=== PATIENT | female | born 1985 | race Caucasian/White ===

== ENCOUNTER 2017-10-27 08:34 | Emergency (ER) | payer MEDICAID, OTHER ==
[~2017-10-27] VITALS: Ht 177.8 cm; Wt 90.0 kg
[~2017-10-27 08:34] MED LIST: CALC0.254 PO; FLUO20CA19 PO; LURA20TA PO; OMEP20TA62 PO; PIRO10CA PO; PRED25PO10 PO; [UNRECOGNIZED DRUG - OTHER]; [UNRECOGNIZED DRUG - OTHER]
[2017-10-27 08:38] VITALS: BP 112/70
[2017-10-27] MEDS ORDERED: ACETAMINOPHEN 325 MG TABLET PO ONE (09:30)
[2017-10-27] MEDS ORDERED: ACETAMINOPHEN 325 MG TABLET ONE (09:40)
== END 2017-10-27 10:02 | disposition home or self-care (01) ==
LOC: ED 09:50
DX: O9A.211 Injury, poisoning and certain other consequences of external causes complicating pregnancy, first trimester (principal); S39.012A Strain of muscle, fascia and tendon of lower back, initial encounter; S63.521A Sprain of radiocarpal joint of right wrist, initial encounter; S80.01XA Contusion of right knee, initial encounter; O99.351 Diseases of the nervous system complicating pregnancy, first trimester; G43.909 Migraine, unspecified, not intractable, without status migrainosus; M19.90 Unspecified osteoarthritis, unspecified site; Z3A.12 12 weeks gestation of pregnancy; W19.XXXA Unspecified fall, initial encounter; Y93.89 Activity, other specified; Y99.8 Other external cause status; Y92.009 Unspecified place in unspecified non-institutional (private) residence as the place of occurrence of the external cause
CPT/HCPCS: 99284

== ENCOUNTER 2019-07-26 21:26 | Emergency (ER) | payer MEDICAID ==
[~2019-07-26] VITALS: Ht 162.6 cm; Wt 97.4 kg
[2019-07-26] MEDS ORDERED: METH2.5T PO (21:38)
--- NOTE | 2019-07-26 22:18 | NUR ---
pt to room from lobby
[2019-07-26 22:35] VITALS: BP 126/71
[2019-07-26 22:52] LABS: MEAN CORPUSCULAR HEMOGLOBIN 25.7 pg (27.0-34.8); MEAN CORPUSCULAR HGB CONC 31.3 g/dL (32.4-35.8); MEAN PLATELET VOLUME 8.7 fL (7.4-10.4); PLATELET COUNT 302 x10^3/uL (130-400); RED BLOOD COUNT 4.11 x10^6/uL (3.82-5.3); RED CELL DISTRIBUTION WIDTH 18.3 % (9.6-15.2)
[2019-07-26 22:53] LABS: ALBUMIN 3.6 g/dL (3.4-5.0); ANION GAP 6 mmol/L (5-15); CALCIUM 8.3 mg/dL (8.5-10.1); CHLORIDE 114 mmol/L (98-107); CREATININE 0.53 mg/dL (0.55-1.02)
[2019-07-26] MEDS ORDERED: DIPHENHYDRAMINE 25 MG CAPSULE PO ONE (23:00)
[2019-07-26] MEDS ORDERED: KETOROLAC 60 MG/2 ML IM ONE (23:00)
[2019-07-26] MEDS ORDERED: METOCLOPRAMIDE 10MG TABLET PO ONE (23:00)
[2019-07-26] MEDS ORDERED: KETOROLAC 60 MG/2 ML ONE (23:02)
[2019-07-26] MEDS ORDERED: DIPHENHYDRAMINE 25 MG CAPSULE ONE (23:02)
[2019-07-26] MEDS ORDERED: METOCLOPRAMIDE 10MG TABLET ONE (23:03)
[2019-07-26 23:11] LABS: BASOPHILS # (AUTO) 0.03 x10^3/uL (0-0.1); BASOPHILS % (AUTO) 0 % (0-1); EOSINOPHILS % (AUTO) 2 % (1-7); LYMPHOCYTES # (AUTO) 2.03 x10^3/uL (1-3.4); LYMPHOCYTES % (AUTO) 30 % (22-44); MD SCAN; MONOCYTES # (AUTO) 0.44 x10^3/uL (0.2-0.8); MONOCYTES % (AUTO) 7 % (2-9); NEUTROPHILS # (AUTO) 4.19 x10^3/uL (1.8-6.8); NEUTROPHILS % (AUTO) 62 % (42-75)
== END 2019-07-26 23:50 | disposition home or self-care (01) ==
LOC: ED 23:30
DX: G43.C0 Periodic headache syndromes in child or adult, not intractable (principal); G43.909 Migraine, unspecified, not intractable, without status migrainosus; M06.9 Rheumatoid arthritis, unspecified
CPT/HCPCS: 36415; 70450; 80048; 82040; 85025; 93005; 96372; 99284; J1885; Q0163

== ENCOUNTER 2019-08-30 11:20 | Emergency (ER) | payer MEDICAID ==
[~2019-08-30] VITALS: Ht 175.3 cm; Wt 96.5 kg
[~2019-08-30 11:20] MED LIST changes: +METH2.5T PO
[2019-08-30 11:45] VITALS: BP 111/65
--- NOTE | 2019-08-30 12:05 | NUR ---
PT HERE WITH C/O RIGHT PLANTAR FOOT PAIN, STATES APPROX. 1 WEEK.
--- NOTE | 2019-08-30 12:19 | NUR ---
ALL RESULTS BACK AT THIS TIME, CHART UP FOR RECHECK.
--- NOTE | 2019-08-30 12:35 | NUR ---
Patient/Caregiver given discharge instructions and they have confirmed that they understand the instructions. Patient ambulatory with steady gait.
== END 2019-08-30 13:24 | disposition home or self-care (01) ==
LOC: ED 12:45
DX: M72.2 Plantar fascial fibromatosis (principal); M06.9 Rheumatoid arthritis, unspecified
CPT/HCPCS: 99284

== ENCOUNTER 2020-01-16 18:01 | Emergency (ER) | payer MEDICAID ==
[~2020-01-16] VITALS: Ht 177.8 cm; Wt 97.7 kg
[2020-01-16 18:03] VITALS: BP 125/84
--- NOTE | 2020-01-16 20:04 | NUR ---
MD IS BEDSIDE FOR ASSESSMENT. SEE MAR FOR INTERVENTIONS
[2020-01-16] MEDS ORDERED: DIAZEPAM 5 MG TABLET ONE (20:07)
[2020-01-16] MEDS ORDERED: DIAZEPAM 5 MG TABLET PO ONE (20:30)
== END 2020-01-16 21:26 | disposition home or self-care (01) ==
LOC: ED 21:15
DX: S16.1XXA Strain of muscle, fascia and tendon at neck level, initial encounter (principal); M62.830 Muscle spasm of back; R51 Headache; M54.6 Pain in thoracic spine; W18.30XA Fall on same level, unspecified, initial encounter; Y93.89 Activity, other specified; Y92.009 Unspecified place in unspecified non-institutional (private) residence as the place of occurrence of the external cause; Y99.8 Other external cause status
CPT/HCPCS: 72110; 72125; 99284